=== PATIENT | female | born 1960 | race Caucasian/White ===

== ENCOUNTER → 2017-05-29 | Outpatient (CLI) | payer BC ==
--- NOTE | 2017-06-01 13:14 | MG ---
HISTORY: Left breast lump and nipple inversion, strong family history Bilateral digital diagnostic mammography with CAD and left breast ultrasound. Comparison: Multiple previous exams dating back to September 23, 2014 FINDINGS: Mammogram: Bilateral CC and MLO projections of the right and left breast were obtained. Heterogeneou sly dense fibroglandular tissue is seen to be present without significant interval change. No new or developing suspicious architectural distortion, mass or clustered microcalcifications can be observe d to suggest malignancy. There is no skin thickening. The left nipple appears chronically mildly inv erted. No pathological lymphadenopathy can be identified. Benign-appearing calcifications are noted within the right and left breast. Ultrasound: Multiple grayscale and color Doppler images were obtained in the region of interest at 12 o'clock in the subareolar breast. There is diffuse subareolar ductal ectasia. At 12 o'clock approxim ately 1 cm from the nipple, there is a 1.5 cm complex cystic and solid nodule which may reflect debri s within a dilated duct or a small intraductal nodule versus complex cyst but for which tissue sampli ng versus breast MRI is recommended given the clinical history. IMPRESSION: Complex cyst versus intraductal nodule/debris at 12 o'clock approximately 1 cm from the nipple in a patient with strong family history as well as progressive nipple inversion for which ultr asound-guided biopsy versus bilateral breast MRI without and with contrast is recommended. ACR CATEGORY 4 - suspicious abnormality; biopsy should be considered. Diagnostic CAD was utilized and reviewed. * 0 (ZERO) - ASSESSMENT INCOMPLETE; ADDITIONAL IMAGING IS NEEDED. * 1/ (ONE) - NEGATIVE. * 2/II (TWO) - BENIGN FINDINGS. * 3/III (THREE) - PROBABLY BENIGN FINDING; SHORT INTERVAL FOLLOW-UP SUGGESTED. * 4/IV (FOUR) - SUSPICIOUS ABNORMALITY; BIOPSY SHOULD BE CONSIDERED. * 5/V - HIGHLY SUSPICIOUS OF MALIGNANCY; BIOPSY SHOULD BE PERFORMED. A NEGATIVE X-RAY REPORT SHOULD NOT DELAY BIOPSY IF A DOMINANT OR CLINICALLY SUSPICIOUS MASS IS PRESENT; 4 TO 8 PERCENT OF CANCERS ARE NOT IDENTIFIED BY X-RAY. A NEGA TIVE REPORT MAY REINFORCE THE CLINICAL IMPRESSION. ADENOSIS AND DENSE BREASTS MAY OBSCURE AN UNDERLY ING NEOPLASM. Reported By:
== END ==
LOC: RAD 12:47
PROVIDERS: ATTEND Nurse Practitioner Family
DX: N63.22 Unspecified lump in the left breast, upper inner quadrant (principal); N64.59 Other signs and symptoms in breast
CPT/HCPCS: 76642; 77066

== ENCOUNTER 2017-06-06 08:56 | Day surgery (SDC) | payer BC ==
[~2017-06-06 08:56] MED LIST: ANCEF 1 GM IV PREMIX* 1 GM/50 ML BAG IV ONE; LR 1000 ML IV 1,000 ML IV ONE
[2017-06-06] MEDS ORDERED: DIPRIVAN VIAL ONE ×2 (10:06→10:39)
[2017-06-06] MEDS ORDERED: VERSED ONE ×2 (10:06→10:39)
[2017-06-06] MEDS ORDERED: FENTANYL INJ 100 mcg ONE (10:08)
[2017-06-06] MEDS ORDERED: NS IRRIGATION 1000 ML 1,000 ML IR ONE (10:46)
[2017-06-06] MEDS: XYLOCAINE 1% and EPINEPHRINE 1:100,000 ONE ×2 (10:46→10:47)
[2017-06-06] MEDS: MARCAINE 0.25% INJ ONE ×2 (10:46→10:47)
[2017-06-06 12:02] VITALS: BP 121/64
--- NOTE | 2017-06-06 12:09 | OR.GENERIC ---
Post-Op Note Generic - Post-Op Note Operative Report: Operative Report Date of Operation: June 06, 2017 Pre-Operative Diagnosis: 1. Family history of breast cancer. 2. Left breast abnormal ultrasound. Post-Operative Diagnosis: 1. Family history of breast cancer. 2. Left breast abnormal ultrasound. Procedure: Ultrasound guided core needle biopsy of left breast tissue (12 o clock). Surgeon: John Nascimento MD. Uke Operator: Jeimy Edwards CRNA. Specimen: Left breast lesion at 12 oclock. Estimated blood loss: Minimal. Complications: None. Summary: The patient is a 63 year old female who presented with inversion of the left nipple and an abnormal ultrasound of the left breast. The patient has a family history of breast cancer. The patient was offered ultrasound-guided core needle biopsy of the region. The risk and benefits of the procedure including difficulty with anesthesia, bleeding, infection, inadequate sampling, scar formation, as well as nerve injury were discussed with the patient. The possibility of inadequate sampling was also discussed with the patient. The patient understood these risks and requested the procedure. On June 06, 2017, the patient was brought to the operative theatre and placed in the supine position. A time-out was performed verifying the patient and procedure. After satisfactory induction of monitored anesthesia care, the left breast was prepped and draped in the usual sterile fashion. The region was visualized on ultrasound at 12 oclock approximately 1 cm from the nipple. Ductal tissue was identified but no mass was seen. The skin was anesthetized with local anesthetic and a small incision made with a scalpel. Multiple 14 gauge core needle biopsies were obtained and sent to pathology. The skin edges re-approximated using inverted, interrupted 4-0 Monocryl sutures. Mastisol and steri-strips were placed. A sterile dressing was placed. The patient was awakened and taken to the recovery room in stable condition. There were no complications. All counts were correct.
== END 2017-06-06 12:01 | disposition home or self-care (01) | DRG 601 ==
LOC: SURG1 08:56
PROVIDERS: ATTEND Student in an Organized Health Care Education/Training Program
PROC: 0HBU3ZX Excision of Left Breast, Percutaneous Approach, Diagnostic (ICD-10-PCS; principal; 2017-06-06 09:45)
DX: R92.8 Other abnormal and inconclusive findings on diagnostic imaging of breast (principal); Z80.3 Family history of malignant neoplasm of breast; N60.82 Other benign mammary dysplasias of left breast; N60.22 Fibroadenosis of left breast
CPT/HCPCS: A4222; S0020; J0690; J2001; J2250; J3010; J3490; J7120